=== PATIENT | female | born 1990 | race Two or more races ===

== ENCOUNTER 2020-03-17 23:56 | Inpatient (IN) | payer MEDICAID ==
[~2020-03-17] VITALS: Ht 167.6 cm; Wt 83.0 kg
[2020-03-18 00:35] LABS: BASOPHILS % (AUTO) 0.9 % (0.0-2.0); EOSINOPHILS % (AUTO) 0.2 % (1.0-6.0); HEMATOCRIT 34.5 % (36-46); HEMOGLOBIN 11.4 g/dL (12.0-16.0); LYMPHOCYTES # (AUTO) 2.6 K/uL (1.0-4.8); LYMPHOCYTES % (AUTO) 26.6 % (22.0-44.0); MEAN CORPUSCULAR HEMOGLOBIN 28.1 pg (26.0-34.0); MEAN CORPUSCULAR HGB CONC 33.1 G/dL (31.0-37.0); MEAN CORPUSCULAR VOLUME 85 fL (80-100); MONOCYTES # (AUTO) 0.8 K/uL (0.1-1.0); MONOCYTES % (AUTO) 7.9 % (2.0-9.0); NEUTROPHILS # (AUTO) 6.3 K/uL (1.8-7.7); NEUTROPHILS % (AUTO) 64.4 % (40.0-70.0); PLATELET COUNT (AUTO) 290 K/uL (150-450); RED BLOOD CELL COUNT(AUTO) 4.05 MIL/uL (4.00-5.20); RED CELL DISTRIBUTION WIDTH 14.3 % (11.5-14.5)
[2020-03-18 00:51] LABS: ANION GAP 13 mmol/L (8-16); CALCIUM, TOTAL 9.4 mg/dL (8.8-10.5); CARBON DIOXIDE 23 mmol/L (22-29); CHLORIDE 102 mmol/L (98-107); CREATININE 0.88 mg/dL (0.60-1.30); GLOMERULAR FILTR. RATE CALC > 60 mL/min (>60); GLUCOSE,RANDOM 98 mg/dL (70-110); POTASSIUM 3.1 mmol/L (3.5-5.1); SODIUM SERUM 138 mmol/L (136-145); UREA NITROGEN, BLOOD 10 mg/dL (7-18)
[2020-03-18 01:04] LABS: ALANINE AMINOTRANSFERASE 30 U/L (12-78); ALBUMIN 4.4 g/dL (3.4-5.0); ALKALINE PHOSPHATASE 66 U/L (46-116); ASPARTATE AMINOTRANSFERASE 28 U/L (15-37); BILIRUBIN,TOTAL 0.5 mg/dL (0.1-1.0); HCG,QUANTITATIVE 1 mIU/mL (0-6); TOTAL PROTEIN, SERUM 8.1 g/dL (6.4-8.2)
[2020-03-18] MEDS: LORazepam 2 MG TABLET PO ONE ×2 (01:18→02:31)
[2020-03-18] MEDS: HALOPERIDOL 5 MG TABLET PO ONE ×2 (01:18→02:31)
[2020-03-18] MEDS: POTASSIUM CHLORIDE 20 MEQ ER TABLET PO ONE ×2 (01:18→06:58)
[2020-03-18 01:52] LABS: COVID AG,FIA SOURCE NASOPHARYNGEAL
[2020-03-18] MEDS ORDERED: LORazepam 2 MG/ML VIAL IM ONE (02:30)
[2020-03-18] MEDS ORDERED: HALOPERIDOL LACTATE 5 MG/ML VIAL IM ONE (02:30)
[2020-03-18 04:35] VITALS: BP 100/60
[2020-03-18] MEDS ORDERED: INFLUENZA VIRUS VACCINE QVS 2020-21 (6MO+)/PF 60 MCG/0.5 ML SYRINGE IM ONE (06:30)
[2020-03-18] MEDS ORDERED: PETROLATUM,WHITE 28 GM JELLY TP PRN (07:45)
[2020-03-18] MEDS ORDERED: GuaiFENesin/D-METHORPHAN [SUGAR-FREE] 200-20MG/10 ML SYRUP UDCUP PO PRN (07:45)
[2020-03-18] MEDS ORDERED: LOPERAMIDE HCL 2 MG CAPSULE PO PRN (07:45)
[2020-03-18] MEDS ORDERED: DOCUSATE SODIUM 100 MG CAPSULE PO PRN (07:45)
[2020-03-18] MEDS ORDERED: MAG HYDROX/AL HYDROX/SIMETH ES 30 ML SUSPENSION UDCUP PO PRN (07:45)
[2020-03-18] MEDS ORDERED: NICOTINE 14 MG/24 HOUR PATCH TD PRN (07:45)
[2020-03-18] MEDS ORDERED: MAGNESIUM HYDROXIDE SUSPENSION 30 ML UDCUP PO PRN (07:45)
[2020-03-18] MEDS ORDERED: IBUPROFEN 400 MG TABLET PO PRN (07:45)
[2020-03-18] MEDS ORDERED: ONDANSETRON HCL 4 MG TABLET PO PRN (07:45)
[2020-03-18] MEDS ORDERED: ALBUTEROL SULFATE HFA 90 MCG/PUFF 8 GM INHALER IH PRN (07:45)
[2020-03-18] MEDS ORDERED: CloNIDine HCL 0.1 MG TABLET PO PRN (07:45)
[2020-03-18 08:18] VITALS: BP 120/74
[2020-03-18 16:21] VITALS: BP 120/72
[2020-03-19 00:38] VITALS: BP 111/75
[2020-03-19 07:59] LABS: CHOL/HDL RATIO 3.2 (3.9-5.7); POTASSIUM 3.8 mmol/L (3.5-5.1)
[2020-03-19 08:07] VITALS: BP 119/83
[2020-03-19] MEDS: LORazepam 2 MG TABLET PO PRN ×2 (08:14→12:56)
[2020-03-19] MEDS: HALOPERIDOL 5 MG TABLET PO PRN ×2 (08:14→12:56)
[2020-03-19 16:53] VITALS: BP 118/72
[2020-03-19] MEDS: ZOLPIDEM TARTRATE 10 MG TABLET PO PRN (21:34)
[2020-03-20 01:50] VITALS: BP 112/78
[2020-03-20 08:15] VITALS: BP 121/91
[2020-03-20] MEDS: LORazepam 2 MG TABLET PO PRN ×2 (08:31→20:13)
[2020-03-20 10:54] VITALS: BP 114/71
[2020-03-20 16:12] VITALS: BP 129/73
[2020-03-20 20:17] VITALS: BP 119/78
[2020-03-20] MEDS: ACETAMINOPHEN 325 MG TABLET PO PRN (20:17)
[2020-03-21] MEDS: ZOLPIDEM TARTRATE 10 MG TABLET PO PRN (01:37)
[2020-03-21 04:50] VITALS: BP 109/74
[2020-03-21] MEDS: ACETAMINOPHEN 325 MG TABLET PO PRN (07:50)
[2020-03-21 08:12] VITALS: BP 123/72
== END 2020-03-21 14:00 | disposition home or self-care (01) | DRG 750 ==
LOC: EMS 23:56 → B3A 03-18 01:09
PROVIDERS: ADMIT Psychiatry & Neurology Psychiatry; ATTEND Psychiatry & Neurology Psychiatry
DX: F20.9 Schizophrenia, unspecified (principal); D64.9 Anemia, unspecified; E87.6 Hypokalemia; F12.90 Cannabis use, unspecified, uncomplicated; F17.210 Nicotine dependence, cigarettes, uncomplicated; F94.0 Selective mutism; Z23 Encounter for immunization; Z59.0 Homelessness; Z03.818 Encounter for observation for suspected exposure to other biological agents ruled out
CPT/HCPCS: 84132; 87426; 90686; G0480; J1630; J2060